=== PATIENT | female | born 1940 | race Caucasian/White ===

== ENCOUNTER 2020-01-01 12:26 | Emergency (ER) | payer OTHER ==
[~2020-01-01] VITALS: Ht 162.6 cm; Wt 83.5 kg
[2020-01-01 12:34] VITALS: Ht 162.6 cm; Wt 83.5 kg
[2020-01-01 13:22] LABS: BASOPHIL % 0.9 % (0-2); PLATELET COUNT 213 x10^3mcL (130-400); RED CELL DISTRIBUTION WIDTH 13.9 % (11.5-14.5)
[2020-01-01 13:24] LABS: CALCIUM 8.5 mg/dL (8.5-10.1); CARBON DIOXIDE 26.4 mmol/L (21-32); CHLORIDE SERUM 103 mmol/L (98-107); CREATININE SERUM 0.9 mg/dL (0.6-1.0); GLUCOSE SERUM 115 mg/dL (74-106); POTASSIUM SERUM 3.9 mmol/L (3.5-5.1); SODIUM SERUM 135 mmol/L (136-145)
[2020-01-01 13:33] LABS: ALKALINE PHOSPHATASE 78 U/L (46-116); ALT/SGPT 15 U/L (14-59); AST/SGOT 17 U/L (15-37); BILIRUBIN TOTAL 0.47 mg/dL (0.20-1.00); FREE T4 1.44 ng/dL (0.76-1.46); TOTAL PROTEIN, SERUM 7.2 g/dL (6.4-8.2)
[2020-01-01 13:34] LABS: ALBUMIN 3.3 g/dL (3.4-5.0)
[2020-01-01 13:40] LABS: MAGNESIUM 2.1 mg/dL (1.8-2.4)
[2020-01-01 14:16] VITALS: BP 129/52
== END 2020-01-01 14:16 | disposition home or self-care (01) ==
LOC: ED 12:26
PROVIDERS: Student in an Organized Health Care Education/Training Program
DX: R55 Syncope and collapse (principal); R42 Dizziness and giddiness
CPT/HCPCS: 84439; Q0092

== ENCOUNTER 2020-05-16 12:13 | Emergency (ER) | payer OTHER ==
[~2020-05-16] VITALS: Ht 170.2 cm; Wt 83.9 kg
[2020-05-16 12:23] VITALS: BP 129/78; Ht 170.2 cm; Wt 83.9 kg
== END 2020-05-16 15:49 | disposition home or self-care (01) ==
LOC: ED 12:13
DX: M54.5 Low back pain (principal); F17.210 Nicotine dependence, cigarettes, uncomplicated; K80.20 Calculus of gallbladder without cholecystitis without obstruction; I10 Essential (primary) hypertension; I25.2 Old myocardial infarction; E03.9 Hypothyroidism, unspecified; Z71.6 Tobacco abuse counseling
CPT/HCPCS: 99406; J1885